=== PATIENT | female | born 1980 | race Caucasian/White ===

== ENCOUNTER 2018-09-08 06:22 | Day surgery (SDC) | payer OTHER ==
[~2018-09-08 06:22] MED LIST: LAMICTAL100 MG PO; NEURONTIN300 MG PO; PRILOSEC10 MG PO
[2018-09-08] MEDS ORDERED: ULTRACET PO (08:31)
[2018-09-08] MEDS ORDERED: SURFAK240 M1 PO (08:31)
[2018-09-08] MEDS ORDERED: MIRALAX17 GM PO (08:31)
== END 2018-09-08 11:20 | disposition home or self-care (01) ==
LOC: CIR.AMB 06:22
DX: K81.1 Chronic cholecystitis (principal); K42.9 Umbilical hernia without obstruction or gangrene